=== PATIENT | male | born 1985 | race African-American/Black ===

== ENCOUNTER 2018-09-08 09:54 | Emergency (ER) | payer MEDICAID ==
[~2018-09-08] VITALS: Ht 172.7 cm; Wt 81.6 kg
[2018-09-08] MEDS ORDERED: HYDROcodone-ACET 10/325MG TAB PO ONE (11:30)
[2018-09-08 15:18] VITALS: BP 117/86
== END 2018-09-08 15:37 | disposition short-term general hospital (02) ==
LOC: ER 09:54
DX: S09.90XA Unspecified injury of head, initial encounter (principal); J45.909 Unspecified asthma, uncomplicated; K21.9 Gastro-esophageal reflux disease without esophagitis; V49.49XA Driver injured in collision with other motor vehicles in traffic accident, initial encounter; Y93.89 Activity, other specified; Y99.8 Other external cause status; Y92.411 Interstate highway as the place of occurrence of the external cause
CPT/HCPCS: 70450